=== PATIENT | male | born 1985 | race African-American/Black ===

== ENCOUNTER 2025-03-26 14:34 | Emergency (ER) | payer OTHER, SELFPAY ==
[2025-03-26 14:36] VITALS: BP 123/82
[2025-03-26 15:00] VITALS: BP 140/88
[2025-03-26 15:00] LABS: Hematocrit 45.4 % (39.0-52.0); Hemoglobin 15.1 g/dL (13.0-18.0); Mean Corp Hgb Conc. 33.3 g/dL (33.0-37.0); Mean Corpuscular Volume 92.1 fL (80.0-94.0); Nucleated Red Blood Cells % 0 % (-); Platelet Count 262 10^3/uL (130-400); Red Cell Dist. Width 13.9 % (11.5-14.5)
[2025-03-26 15:20] LABS: ALT (SGPT) 27 U/L (0-50); AST (SGOT) 24 U/L (17-59); Albumin 5.0 g/dl (3.5-5.0); Alkaline Phosphatase 87 U/L (38-126); Blood Urea Nitrogen 12 mg/dl (9-20); Calcium 9.6 mg/dl (8.4-10.2); Carbon Dioxide 30 mmol/L (22-30); Chloride 101 mmol/L (98-107); Estimated Creatinine Clearance > 125 ml/min; Glucose 99 mg/dl (70-99); Potassium 3.7 mmol/L (3.5-5.1); Sodium 141 mmol/L (135-145); Total Protein 7.9 g/dl (6.3-8.2); eGFR > 60.00
[2025-03-26 16:00] VITALS: BP 135/91
[2025-03-26] MEDS: MOTRIN 400 MG PO (17:08)
[2025-03-26] MEDS: NEURONTIN 300 MG PO (17:08)
[2025-03-26 17:23] VITALS: BP 120/87; BP 131/89; BP 140/82; PULSE 55; PULSE 63; PULSE 72
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
[2025-03-26 17:38] VITALS: BP 119/87; BP 131/89; BP 140/82; PULSE 55; PULSE 63; PULSE 82
== END 2025-03-26 17:50 ==
LOC: EMR 14:34
PROVIDERS: Emergency Medicine; EMERGENCY PHYSICIAN Emergency Medicine
DX: R55 Syncope and collapse (principal)
CPT/HCPCS: 99283; 71045; 80053; 85025; 93005